=== PATIENT | female | born 1980 | race Caucasian/White ===

== ENCOUNTER 2019-02-05 22:23 | Emergency (ER) | payer MEDICAID ==
[~2019-02-05] VITALS: Ht 162.6 cm; Wt 63.5 kg
[2019-02-05 22:57] VITALS: BP 108/66
--- NOTE | 2019-02-05 23:01 | NUR ---
PT AMBULATED TO LOBBY WITH VSS. PROVIDING URINE.
--- NOTE | 2019-02-05 23:39 | NUR ---
PT AMBULATED TO BED 6
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
--- NOTE | 2019-02-06 | NUR ---
XRAY AT BEDSIDE FOR INTERVENTION.
[2019-02-06] MEDS ORDERED: IBUPROFEN 800 MG TAB PO ONE (00:25)
[2019-02-06] MEDS ORDERED: BACITRACIN OINT 500 UNITS/GM PKT TP ONE (00:30)
[2019-02-06 00:58] VITALS: BP 110/59
== END 2019-02-06 00:58 | disposition home or self-care (01) ==
LOC: MED 22:23
DX: S61.432A Puncture wound without foreign body of left hand, initial encounter (principal); W26.0XXA Contact with knife, initial encounter; Y93.89 Activity, other specified; Y92.89 Other specified places as the place of occurrence of the external cause; Y99.8 Other external cause status
CPT/HCPCS: 73130; 90471; 90715; 99283; Q0092

== ENCOUNTER 2023-04-26 21:34 | Emergency (ER) | payer MEDICAID ==
[~2023-04-26] VITALS: Ht 162.6 cm; Wt 61.2 kg
[2023-04-26 22:29] VITALS: BP 100/68
--- NOTE | 2023-04-27 00:26 | NUR ---
PT TO BED 07
--- NOTE | 2023-04-27 00:56 | NUR ---
43 Y/O F PRESENTS WITH L EYE ITCHING, WATERY, AND WHITE DISCHARGE X4DAYS. PT DENIES EYE PAIN. PT STATED SHE HAS A HEADACHE 7/10, AND A STIFF NECK, PAIN UPON MOVEMENT. PT STATED SHE USED EYE DROPS AT HOME WITH NO RELIEF. PT IS A&OX4, SKIN INTACT. PMH-PT DENIES NKA MEDICATIONS- VITAMINS
[2023-04-27] MEDS ORDERED: FLUORESCEIN OPTH STRIP 1 MG OP ONE (01:30)
[2023-04-27] MEDS ORDERED: TETRACAINE HCL/PF 0.5% OPTH 4 ML BTL ONE (01:30)
[2023-04-27] MEDS ORDERED: TETRACAINE 1% 2 ML AMP INJ ONE (01:30)
--- NOTE | 2023-04-27 01:33 | NUR ---
Patient being evaluated by physician at bedside.
[2023-04-27] MEDS ORDERED: NAPR-54 PO (01:53)
[2023-04-27] MEDS ORDERED: TOBR5SOL38 LEFT EYE (01:53)
[2023-04-27] MEDS ORDERED: CEPH-588 PO (01:53)
[2023-04-27] MEDS ORDERED: ACETAMINOPHEN EXTRA STRENGTH 500 MG TAB PO ONE (02:00)
--- NOTE | 2023-04-27 02:10 | NUR ---
Patient discharged with v/s stable. Written and verbal after care instructions given and explained. Patient alert, oriented and verbalized understanding of instructions. Ambulatory with steady gait. All questions addressed prior to discharge. ID band removed. Patient advised to follow up with PMD. Rx of KEFLEX, NAPROXEN, TOBRAMYCIN given.Opportunity to ask questions provided and answered.
== END 2023-04-27 00:26 | disposition home or self-care (01) ==
LOC: MED 21:34
DX: H10.9 Unspecified conjunctivitis (principal); Z79.899 Other long term (current) drug therapy
CPT/HCPCS: 99283

== ENCOUNTER 2024-03-06 00:54 | Emergency (ER) | payer MEDICAID ==
[~2024-03-06] VITALS: Ht 160 cm; Wt 65.5 kg
[~2024-03-06 00:54] MED LIST: CEPH-588 PO; NAPR-54 PO; TOBR5SOL38 LEFT EYE
[2024-03-06 01:01] VITALS: BP 116/64; PULSE 72; RESP 19; TEMP 97.8; O2SAT 100
[2024-03-06 01:27] LABS: APPEARANCE,URINE CLEAR (CLEAR); BILIRUBIN,URINE NEGATIVE (NEGATIVE); BLOOD, URINE NEGATIVE (NEGATIVE); COLOR,URINE YELLOW (YELLOW); LEUKOCYTE ESTERASE ,URINE NEGATIVE (NEGATIVE); NITRITE, URINE NEGATIVE (NEGATIVE); PH,URINE 6.5 (5.0-9.0); PROTEIN,URINE NEGATIVE (NEGATIVE); UGLUCOSE NEGATIVE (NEGATIVE); UROBILINOGEN,URINE 0.2 EU/dL (0.2 - 1)
[2024-03-06 01:29] LABS: BASOPHILS # (AUTO) 0.1 K/uL (0.00-0.22); BASOPHILS % (AUTO) 1.2 % (0.0-2.0); EOSINOPHILS # (AUTO) 0.2 K/uL (0-0.4); EOSINOPHILS % (AUTO) 2.7 % (0.0-4.0); HEMOGLOBIN 12.4 g/dL (12.0-16.0); LYMPHOCYTES # (AUTO) 1.6 K/uL (2.5-16.5); LYMPHOCYTES % (AUTO) 21.3 % (20.5-51.1); MEAN CORPUSCULAR HEMOGLOBIN 25 pg (27-31); MEAN CORPUSCULAR HGB CONC 33 g/dL (33-37); MEAN CORPUSCULAR VOLUME 73.8 fL (80-94); MONOCYTES # (AUTO) 0.8 K/uL (0.8-1.0); MONOCYTES % (AUTO) 11.5 % (1.7-9.3); NEUTROPHILS # (AUTO) 4.6 K/uL (1.8-7.7); NEUTROPHILS % (AUTO) 63.3 % (42.2-75.2); PLATELET COUNT (AUTO) 233 K/uL (140-450); RED BLOOD CELL COUNT(AUTO) 5.02 MIL/uL (4.20-5.40); RED CELL DISTRIBUTION WIDTH 14.6 % (11.6-13.7); WHITE BLOOD COUNT (AUTO) 7.3 K/uL (4.8-10.8)
[2024-03-06] MEDS: MORPHINE SULFATE 4 MG/ML SYR IVP ONE (01:35)
[2024-03-06] MEDS: ONDANSETRON 4 MG/2 ML VIAL IVP ONE (01:36)
[2024-03-06 01:51] LABS: ANION GAP 13.6 (8-16); CALCIUM 9.4 mg/dL (8.5-10.1); CARBON DIOXIDE 28.5 mmol/L (21-32); CREATININE 0.9 mg/dL (0.6-1.3); POTASSIUM 4.1 mmol/L (3.5-5.1)
[2024-03-06 01:57] LABS: ALBUMIN 3.7 g/dL (3.4-5.0); TOTAL BILIRUBIN 0.1 mg/dL (0.0-1.0); TOTAL PROTEIN, SERUM 7.4 g/dL (6.4-8.2)
[2024-03-06 04:06] VITALS: BP 90/57; PULSE 68; RESP 14; O2SAT 100
== END 2024-03-06 04:06 | disposition home or self-care (01) ==
LOC: MED 00:54
DX: D25.9 Leiomyoma of uterus, unspecified (principal); Z79.1 Long term (current) use of non-steroidal anti-inflammatories (NSAID); Z79.899 Other long term (current) drug therapy
CPT/HCPCS: 36415; 74177; 80048; 80076; 81003; 81025; 83605; 83690; 85025; 87040; 96374; 96375; 99285; J2270; J2405; Q9967